=== PATIENT | male | born 1970 | race Caucasian/White ===

== ENCOUNTER 2016-05-04 07:14 | Day surgery (SDC) | payer MEDICARE, MEDICAID ==
[~2016-05-04 07:14] MED LIST: Lactated Ringers 1,000 ML IV SCH
[2016-05-04] MEDS ORDERED: Propofol 200 MG/20 ML SDV ONE (08:15)
--- NOTE | 2016-05-04 10:21 | OR ---
PREOPERATIVE DIAGNOSES: Anemia and elevated liver function tests. POSTOPERATIVE DIAGNOSIS: Significant gastritis with multiple superficial ulcerations. PROCEDURE PROPOSED: Upper gastrointestinal panendoscopy. PROCEDURE DONE: Upper gastrointestinal panendoscopy with duodenal, gastric, and esophageal biopsies. INDICATION: This is a 45-year-old gentleman found to be anemic with a hemoglobin of 8.4. He also has some elevated liver function tests. He, likely by history, has some fatty liver disease due to his eating habits of fast foods and lots of sugar pop with caffeine and felt he should be gastroscoped to rule out pathology. TECHNIQUE: The patient was brought to the endoscopy suite, placed in left lateral decubitus position. He was sedated with propofol per SOLDERER TORCH. The flexible video gastroscope was then passed transorally and under visualization was advanced well into the duodenum. The duodenum and duodenal bulb were unremarkable. About 4 biopsies were taken from the duodenum. The antrum and body of the stomach revealed a rather significant diffuse gastritis, particularly worse in the antrum where he had multiple superficial ulcerations, and multiple biopsies were taken from the antral region for pathology as well as to rule out H. pylori. The GE junction did not reveal any significant hiatal hernia, and there was no evidence of any active GERD. The GE junction was well demarcated. His stomach, however, seemed to have prominent vascularity, and I did multiple biopsies of his esophagus also. There were no signs of any stenosis or Schatzki's ring or true esophagitis. The scope was then withdrawn. He tolerated the procedure well. IMPRESSION: 1. Significant gastritis with superficial ulcerations. 2. Normal duodenum. 3. Hypervascular esophagus, biopsies pending. PLAN: At this point, he definitely needs to cut out his caffeine consumption with the Coke and Mountain Dew that he is drinking. He just got started on Prilosec twice a day, which should be good for his problem. With his elevated liver function tests and anemia, I also feel that he should have a CAT scan of his abdomen to evaluate his spleen and his liver, and his pancreas and gallbladder. I feel this would shed more light than an ultrasound, and he should follow up with his PCP as needed. SCM: 05/04/2016 09:14:05 MODL: 05/04/2016 10:11:08 /[id number]
[2016-05-04 10:28] VITALS: BP 110/64
== END 2016-05-04 10:30 | disposition home or self-care (01) ==
LOC: VM.SDS 07:14
PROVIDERS: ATTEND Surgery
DX: K31.9 Disease of stomach and duodenum, unspecified (principal); E11.9 Type 2 diabetes mellitus without complications; E79.0 Hyperuricemia without signs of inflammatory arthritis and tophaceous disease; Z79.4 Long term (current) use of insulin; Z88.8 Allergy status to other drugs, medicaments and biological substances; Z79.82 Long term (current) use of aspirin; Z79.899 Other long term (current) drug therapy; E03.9 Hypothyroidism, unspecified; E78.5 Hyperlipidemia, unspecified
CPT/HCPCS: 00740; 43239; 82962; J2704; J7120; 88305

== ENCOUNTER 2016-09-19 06:59 | Day surgery (SDC) | payer MEDICARE, MEDICAID ==
[2016-09-19] MEDS ORDERED: Acetaminophen 1,000 MG in Premix Bag 1 BAG IV ONE (07:50)
[2016-09-19] MEDS ORDERED: Bupivacaine 0.25%/EPINEPHrine 1:200,000 30 ML SDV ONE (08:10)
[2016-09-19] MEDS ORDERED: fentaNYL 100 MCG/2 ML SDV ONE (08:28)
[2016-09-19] MEDS ORDERED: Propofol 200 MG/20 ML SDV ONE (08:28)
[2016-09-19] MEDS ORDERED: Bupivacaine 0.25%/EPINEPHrine 1:200,000 30 ML SDV INFILT ONE (08:45)
[2016-09-19 09:54] VITALS: BP 120/60
--- NOTE | 2016-09-19 15:53 | OR ---
PREOPERATIVE DIAGNOSIS: Large left hip mass. 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 PROCEDURE PROPOSED: Excision of the left hip mass. PROCEDURE DONE: Excision of the left hip bursa. INDICATION: This is a 45-year-old gentleman who has had a chronic hard mass in his left hip region that is uncomfortable and irritating to him particularly when he tries to lie on his left side. An x-ray was obtained in the clinic because it was so hard, but there was no signs of this being any bony protrusion or mass. It was therefore felt that it is a soft tissue mass, and he comes in now for elective removal. TECHNIQUE: The patient was brought to the operative suite, placed in the right lateral decubitus position. He was given MAC anesthesia per CEPHALOMETRIC TECHNICIAN, and the left hip area was sterilely prepped and draped. The area was then locally anesthetized with 0.25% Marcaine with epinephrine and a vertical incision was made directly over the mass, carried down through the subcutaneous tissue. The mass was encountered, it was dissected free from the surrounding tissue with cautery, it was densely adherent to the underlying tendon sheath, but it did come out nicely intact and had the appearance of a chronic bursa. It was cut open, and it seemed to be filled with a gelatinous-type material, and it was submitted for pathologic examination. It did measure approximately 4 x 2.5 cm. After assuring hemostasis, the subcutaneous tissue was reapproximated with interrupted 3-0 Vicryl, and the skin closed with subcuticular stitch of 4- 0 Vicryl, and a pressure dressing was applied. There was minimal blood loss, and he was taken back to [facility] in good condition. SCM: 09/19/2016 09:25:18 MODL: 09/19/2016 11:02:18 /[id number]
== END 2016-09-19 10:30 | disposition home or self-care (01) ==
LOC: VM.SDS 06:59
PROVIDERS: ATTEND Surgery
DX: M71.552 Other bursitis, not elsewhere classified, left hip (principal); E66.9 Obesity, unspecified; E11.9 Type 2 diabetes mellitus without complications; E03.9 Hypothyroidism, unspecified; E78.5 Hyperlipidemia, unspecified; E87.6 Hypokalemia; E79.0 Hyperuricemia without signs of inflammatory arthritis and tophaceous disease; Z88.1 Allergy status to other antibiotic agents; Z79.4 Long term (current) use of insulin; Z79.899 Other long term (current) drug therapy; Z79.82 Long term (current) use of aspirin; Z79.84 Long term (current) use of oral hypoglycemic drugs; Z98.890 Other specified postprocedural states; Z68.44 Body mass index [BMI] 60.0-69.9, adult
CPT/HCPCS: 27043; 82962; 88304; J2704; J3010; J7120; 01250; A9270-GY